=== PATIENT | female | born 1965 | race Caucasian/White ===

== ENCOUNTER 2017-06-26 13:02 | Emergency (ER) | payer OTHER ==
[~2017-06-26] VITALS: Ht 154.9 cm; Wt 71.4 kg
[2017-06-26 13:13] VITALS: TEMP 36.6; Ht 154.9 cm; Wt 71.4 kg
--- NOTE | 2017-06-26 13:57 | EMERGENCY ROOM VISIT NOTE ---
History Report prepared by Omar: Carson Rodas Under the Supervision of: Dr. Bienvenido Kendall M.D. First contact with patient: 13:31 Chief Complaint: MENTAL HEALTH EVALUATION Stated Complaint: CRISIS SITUATION History of Present Illness The patient is a 52 year old female who presents to the Emergency Room for a mental health evaluation due to worsening anxiety for the past few days. She additionally states that she has a headache and some eye pain. The patient states that she is stressed from things at her own business. The patient states that she has been having a lot of spasms recently. She states that she has been trying to talk to her doctors. The patient states that she was put on Klonopin, nortriptyline and then Valium which she states has helped her spasms. Additionally she states that she was put on Lyrica and Cymbalta, though they made her depressed so she weaned herself off of it. She states that she has never been hospitalized for anxiety in the past. The patient states that she has seen a psychiatrist yesterday, and she states that she has not slept recently, and she has not been eating very well and has lost 50 pounds. The patient states that about a week ago she took a handful of pills to just go to sleep, though she spit them out since she could not do it. She denies any homicidal ideation. The patient states that she does not drink alcohol, though she does smoke marijuana for her pain from her rheumatoid arthritis. The patient states that she has had torticollis for the past 2 years. Source of History: patient Onset: past few days Position: other (global) Quality: other (anxiety) Timing: worsening Associated Symptoms: + headache Note: Associated symptoms: eye pain Review of Systems See HPI for pertinent positives & negatives. A total of 10 systems reviewed and were otherwise negative. Past Medical & Surgical Medical Problems: (1) Anxiety (2) Torticollis Old medical records were reviewed. Nurse's notes were reviewed and I agree with. Social History Smoking Status: Current Every Day Smoker Marital Status: Housing Status: lives with family Occupation Status: employed Current/Historical Medications Scheduled Acetaminophen (Tylenol), 1,000 MG PO DAILY Calcium Carbonate-Cholecalcife (Caltrate 600+D), 1 TAB PO BID Cholecalciferol (Vitamin D3), 2,000 UNITS PO BID Clonazepam (Klonopin), 0.5-1 MG PO DAILY Dexlansoprazole (Dexilant), 60 MG PO DAILY Estrogens, Conjugated (Premarin), 0.625 MG PO DAILY Ferrous Sulfate (Kp Ferrous Sulfate), 1 TAB PO DAILY Levothyroxine Sodium (Synthroid), 112 MCG PO DAILY [Potassium Gluconate], 99 MG PO DAILY Allergies Coded Allergies: Doxycycline (Unverified Allergy, Severe, ANAPHYLAXIS, 06/26/17) Sulfamethoxazole w/Trimethoprim (Unverified Adverse Reaction, Unknown, YEAST INFECTIONS, 06/26/17) Uncoded Allergies: LAYTEX (Allergy, Intermediate, RASH, 06/26/17) Physical Exam Vital Signs Date Time Temp Pulse Resp B/P (MAP) Pulse Ox O2 Delivery O2 Flow Rate FiO2 06/26/17 16:50 68 18 142/72 96 Room Air 06/26/17 14:50 72 20 137/76 96 Room Air 06/26/17 13:13 36.6 88 18 132/77 96 Room Air Physical Exam General: Anxious appearing middle aged female. Intermittently teary eyes. Some tangential thinking. No acute distress. HEENT: Normal cephalic atraumatic. Pupils are equal round and reactive to light. Extraocular movements are intact. Oropharynx is pink with moist mucous membranes. No swelling of the mouth lips or tongue. Neck: Supple with a midline trachea. No meningeal signs or stiffness, no JVD or bruits. No Stridor. Chest: Clear to auscultation bilaterally. No wheezes or rhonchi. No increased work of breathing. Heart: regular rate and rhythm. Abdomen: Soft nontender, nondistended without rebound guarding or rigidity. Extremities: No cyanosis clubbing or edema. No calf tenderness or assymetry Spine/Back. Non tender to palpation. No CVA tenderness Skin: Good turgor without rashes. Neurologic exam: Cranial nerves two through 12 are intact. Motor and sensation are intact and symmetrical throughout. Psych: Teary eyed. Depressed. Has had fleeting thoughts of hurting herself. Medical Decision & Procedures Laboratory Results 06/26/17 13:55 Red Blood Count 4.80, Mean Corpuscular Volume 82.9, Mean Corpuscular Hemoglobin 28.3, Mean Corpuscular Hemoglobin Concent 34.2, Mean Platelet Volume 9.9, Neutrophils (%) (Auto) 55.6, Lymphocytes (%) (Auto) 34.3, Monocytes (%) (Auto) 8.7, Eosinophils (%) (Auto) 0.9, Basophils (%) (Auto) 0.4, Neutrophils # (Auto) 4.12, Lymphocytes # (Auto) 2.55, Monocytes # (Auto) 0.65, Eosinophils # (Auto) 0.07, Basophils # (Auto) 0.03 06/26/17 13:55 Test 06/26/17 00:00 06/26/17 13:55 06/26/17 17:30 Urine Color DK YELLOW Urine Appearance CLOUDY (CLEAR) Urine pH 6.0 (4.5-7.5) Urine Specific [place] 1.023 (1.000-1.030) Urine Protein TRACE (NEG) Urine Glucose (UA) NEG (NEG) Urine Ketones TRACE (NEG) Urine Occult Blood NEG (NEG) Urine Nitrite NEG (NEG) Urine Bilirubin NEG (NEG) Urine Urobilinogen NEG (NEG) Urine Leukocyte Esterase NEG (NEG) Urine WBC (Auto) 1-5 /hpf (0-5) Urine RBC (Auto) 5-10 /hpf (0-4) Urine Hyaline Casts (Auto) 1-5 /lpf (0-5) Urine Epithelial Cells (Auto) >30 /lpf (0-5) Urine Bacteria (Auto) NEG (NEG) Urine Crystals CALCIUM OXALATE (NONE White Blood Count 7.43 K/uL (4.8-10.8) Red Blood Count 4.80 M/uL (4.2-5.4) Hemoglobin 13.6 g/dL (12.0-16.0) Hematocrit 39.8 % (37-47) Mean Corpuscular Volume 82.9 fL (80-100) Mean Corpuscular Hemoglobin 28.3 pg (25-34) Mean Corpuscular Hemoglobin Concent 34.2 g/dl (32-36) Platelet Count 445 K/uL (130-400) Mean Platelet Volume 9.9 fL (7.4-10.4) Neutrophils (%) (Auto) 55.6 % Lymphocytes (%) (Auto) 34.3 % Monocytes (%) (Auto) 8.7 % Eosinophils (%) (Auto) 0.9 % Basophils (%) (Auto) 0.4 % Neutrophils # (Auto) 4.12 K/uL (1.4-6.5) Lymphocytes # (Auto) 2.55 K/uL (1.2-3.4) Monocytes # (Auto) 0.65 K/uL (0.11-0.59) Eosinophils # (Auto) 0.07 K/uL (0-0.5) Basophils # (Auto) 0.03 K/uL (0-0.2) RDW Standard Deviation 44.9 fL (36.4-46.3) RDW Coefficient of Variation 14.7 % (11.5-14.5) Immature Granulocyte % (Auto) 0.1 % Immature Granulocyte # (Auto) 0.01 K/uL (0.00-0.02) Anion Gap 8.0 mmol/L (3-11) Est Creatinine Clear Calc Drug Dose 65.3 ml/min Estimated GFR () 84.1 Estimated GFR (Non- 72.5 BUN/Creatinine Ratio 9.9 (10-20) Calcium Level 9.3 mg/dl (8.5-10.1) Total Bilirubin 0.3 mg/dl (0.2-1) Direct Bilirubin < 0.1 mg/dl (0-0.2) Aspartate Amino Transf (AST/SGOT) 19 U/L (15-37) Alanine Aminotransferase (ALT/SGPT) 33 U/L (12-78) Alkaline Phosphatase 96 U/L (45-117) Total Protein 8.1 gm/dl (6.4-8.2) Albumin 3.7 gm/dl (3.4-5.0) Lipase 118 U/L (73-393) Thyroid Stimulating Hormone (TSH) 1.090 uIu/ml (0.300-4.500) Salicylates Level 3.5 mg/dl (2.8-20) Acetaminophen Level < 2 ug/ml (10-30) Ethyl Alcohol mg/dL < 3.0 mg/dl (0-3) Laboratory studies as stated above per my review. Medications Administered Medications (Trade) Dose Ordered Sig/Angie Route Start Time Stop Time Status Last Admin Dose Admin Diazepam (Valium Tab) 5 mg NOW STAT PO 06/26/17 16:04 06/26/17 16:06 DC 06/26/17 16:04 5 MG ECG Indication: other (anxiety) Rate (beats per minute): 91 Rhythm: normal sinus Findings: other (LVH, normal interval) ED Course 1331: Past medical records reviewed. The patient was evaluated in room A7, and a complete history and physical examination were performed. 1601: I reevaluated the patient, and she had a muscle spasm. She states that she wants Valium 1604: Valium Tab 5mg PO 1736: Medical Decision Differentials include, but are not limited to; anxiety, depression, toxicologic process, electrolyte or metabolic abnormality. This patient comes in as described above. She is trying to get her care moved up here. She has no local doctor. She's been very anxious and had stress and ongoing torticolis that has been I don't think so causing her problems. Multiple blood testing was obtained. She was medically cleared to be seen by psychiatry. She's no had significant electrolyte or metabolic abnormalities or nothing to suggest infection or toxicologic process. Maura, our case management saw her and the patient started having torticollis spell and asked for Valium. Her daughters driving. She was given Valium 5 mg by mouth. This did seem to help. The patient is feeling much better. At this point, she does not meet criteria for admission she may ultimately benefit from admission at some point to her mental health [facility] however there are no beds she does not want to go anywhere else. She does feel comfortable going home. She's can call and check in with Maura tomorrow. Family is comfortable this is well she is supposed to be on Zoloft and Klonopin which she should use. The Klonopin could also help with her spasms as well as her anxiety. We have made an appointment for her to see a primary care physician. She was encouraged to return to ER if: Worsening of symptoms, thoughts of hurting himself or others, any new problems concerns. She was happy with plan and discharged to home. Medication Reconcilliation Current Medication List: was personally reviewed by me Blood Pressure Screening Patient's blood pressure: Normal blood pressure Impression Primary Impression: Anxiety Additional Impression: Torticollis Scribe Attestation The scribe's documentation has been prepared under my direction and personally reviewed by me in its entirety. I confirm that the note above accurately reflects all work, treatment, procedures, and medical decision making performed by me. Departure Information Dispostion Home / Self-Care Referrals No Doctor, Assigned (PCP) Forms HOME CARE DOCUMENTATION FORM, IMPORTANT VISIT INFORMATION Patient Instructions My [facility] Additional Instructions Rest. Drink plenty of fluids. Use your Klonopin and Zoloft as directed. Klonopin may make you drowsy and do not take before drinking, driving, working Return if: Worsening symptoms, thoughts of hurting herself or others, any new problems or concerns Problem Qualifiers
[2017-06-26 14:13] LABS: BASO % 0.4 %; BASO ABS # 0.03 K/uL (0-0.2); COMPLETE YES; EOS % 0.9 %; HEMATOCRIT 39.8 % (37-47); IG% 0.1 %; LYMPH % 34.3 %; LYMPH ABS # 2.55 K/uL (1.2-3.4); MEAN CELL VOLUME 82.9 fL (80-100); MEAN CORPUSCULAR HEMOGLOBIN 28.3 pg (25-34); MEAN CORPUSCULAR HGB CONC 34.2 g/dl (32-36); MEAN PLATELET VOLUME 9.9 fL (7.4-10.4); MONO % 8.7 %; NEUT % 55.6 %; PLATELET COUNT 445 K/uL (130-400); WHITE BLOOD COUNT 7.43 K/uL (4.8-10.8)
[2017-06-26] MEDS ORDERED: LEVO112T2 PO (14:19)
[2017-06-26] MEDS ORDERED: PRM625 PO (14:20)
[2017-06-26] MEDS ORDERED: DEXL60CA4 PO (14:21)
[2017-06-26] MEDS ORDERED: ACET-1256 PO (14:22)
[2017-06-26] MEDS ORDERED: CLON1TAB3 PO (14:23)
[2017-06-26] MEDS ORDERED: CALC-354 PO (14:33)
[2017-06-26] MEDS ORDERED: POTAPOW29 PO (14:33)
[2017-06-26] MEDS ORDERED: CHOL1000 PO (14:33)
[2017-06-26 14:40] LABS: BUN/CREATININE RATIO 9.9 (10-20); CALCIUM 9.3 mg/dl (8.5-10.1); CREATININE 0.91 mg/dl (0.60-1.20); POTASSIUM 3.7 mmol/L (3.5-5.1)
[2017-06-26 14:44] LABS: ALKALINE PHOSPHATASE 96 U/L (45-117); ALT/SGPT 33 U/L (12-78); AST/SGOT 19 U/L (15-37)
[2017-06-26] MEDS ORDERED: FERR1TAB13 PO (14:47)
[2017-06-26 14:48] LABS: ACETAMINOPHEN < 2 ug/ml (10-30)
[2017-06-26 15:26] LABS: BENZODIAZEPINE, URINE POS (NEG); COCAINE,URINE NEG (NEG); PHENCYCLIDINE, URINE NEG (NEG)
[2017-06-26 15:41] LABS: URINE APPEARANCE CLOUDY (CLEAR); URINE BILIRUBIN NEG (NEG); URINE COLOR DK YELLOW; URINE EPITHELIAL CELL AUTO >30 /lpf (0-5); URINE NITRITE NEG (NEG); URINE SPECIFIC GRAVITY 1.023 (1.000-1.030); UROBILINOGEN NEG (NEG); ZZUR CULT IF INDIC CLEAN CATCH NO
[2017-06-26 15:47] LABS: MANUAL MICROSCOPIC REQUIRED? NO; REVIEW REQ? YES
[2017-06-26] MEDS ORDERED: DIAZEPAM 5MG TAB PO STA (16:04)
[2017-06-26 16:50] VITALS: BP 142/72; PULSE 68; O2SAT 96
[2017-06-26 18:13] LABS: BENZODIAZEPINE, URINE POS (NEG); COCAINE,URINE NEG (NEG); PHENCYCLIDINE, URINE NEG (NEG)
[2017-06-29 14:27] LABS: HYDROXYETHYLFLURAZEPAM CONF NEGATIVE NG/ML (CUTOFF=50); HYDROXYMIDAZOLAM NEGATIVE NG/ML (CUTOFF=50); HYDROXYTRIAZOLAM CONF NEGATIVE NG/ML (CUTOFF=50); TEMAZEPAM CONF NEGATIVE NG/ML (CUTOFF=50)
== END 2017-06-26 18:08 | disposition home or self-care (01) ==
LOC: C.EDB 13:03 → C.EDA 18:08
DX: Z00.8 Encounter for other general examination (principal); F41.9 Anxiety disorder, unspecified; M43.6 Torticollis

== ENCOUNTER → 2017-08-13 | Outpatient (CLI) | payer OTHER ==
[~2017-08-13] MED LIST: ACET-1256 PO; CALC-354 PO; CHOL1000 PO; CLON1TAB3 PO; DEXL60CA4 PO; FERR1TAB13 PO; LEVO112T2 PO; POTAPOW29 PO; PRM625 PO
--- NOTE | 2017-08-13 17:32 | DIAGNOSTIC IMAGING REPORT ---
LEFT HAND MIN 3 VIEWS ROUTINE CLINICAL HISTORY: 52 years-old Female presenting with arthritis, no trauma. TECHNIQUE: Frontal, oblique, and lateral views of the left hand were obtained. COMPARISON: Correlation made to plain radiographs of the right hand performed the same day. FINDINGS: Degenerative changes of the distal interphalangeal joint of the second, third, and fifth fingers. Less severe degenerative change at the interphalangeal joint of the first finger and proximal interphalangeal joint of the fifth finger, best appreciated on lateral view. Joint space loss and osteophytosis of apparent. No marginal erosions or osteopenia. However, subchondral erosions may be present. Radiocarpal, intercarpal, and carpometacarpal articulations normal with no acute fracture or malalignment. No soft tissue abnormality. IMPRESSION: Findings most consistent with osteoarthritis affecting the distal interphalangeal joints more than the proximal interphalangeal joints. The presence of possible subchondral erosions suggests erosive osteoarthritis. Electronically signed by: Nirmal Blevins M.D. 08/13/2017 5:31 PM Dictated Date/Time: 08/13/2017 5:26 PM
--- NOTE | 2017-08-13 17:36 | DIAGNOSTIC IMAGING REPORT ---
RIGHT HAND MIN 3 VIEWS ROUTINE CLINICAL HISTORY: 52 years-old Female presenting with arthralgia multiple joints, no trauma. TECHNIQUE: Frontal, oblique, and lateral views of the right hand were obtained. COMPARISON: Correlation made to plain radiographs of the left hand. FINDINGS: Degenerative changes with joint space loss and osteophytosis noted at the distal interphalangeal joints of the second through fifth fingers. Subchondral erosions may be present. No marginal erosions apparent. Relative sparing of the interphalangeal joint of the first finger. No significant degenerative change of the proximal interphalangeal joints. Radiocarpal, intercarpal, and carpometacarpal articulations preserved. Mild degenerative change suggested at the first metacarpophalangeal joint. No acute fracture or malalignment. No osteopenia. No soft tissue abnormality. IMPRESSION: Findings most consistent with osteoarthritis involving the distal interphalangeal joints. The presence of subchondral erosions suggest erosive osteoarthritis. Electronically signed by: Nirmal Blevins M.D. 08/13/2017 5:35 PM Dictated Date/Time: 08/13/2017 5:31 PM
--- NOTE | 2017-08-13 17:38 | DIAGNOSTIC IMAGING REPORT ---
THORACIC SPINE 3 VIEWS ROUTINE CLINICAL HISTORY: 52 years-old Female presenting with arthralgia multiple joints, scoliosis. TECHNIQUE: 3 views of the thoracic spine were obtained. COMPARISON: None. FINDINGS: S-shaped scoliotic curvature of the thoracolumbar spine. Slightly exaggerated kyphosis of the thoracic spine. Allowing for scoliosis, no gross evidence of vertebral body height loss. Intervertebral disc spaces maintained. Multilevel degenerative changes noted most severe in the upper lumbar spine at L2-3. No evidence of syndesmophytosis. Visualized portion of the thorax demonstrates a mildly prominent cardiac silhouette with clear lungs and pleural spaces. IMPRESSION: 1. S-shaped scoliotic curvature of the thoracolumbar spine. 2. Mild multilevel degenerative changes. Electronically signed by: Nirmal Blevins M.D. 08/13/2017 5:37 PM Dictated Date/Time: 08/13/2017 5:35 PM
[2017-08-13 17:39] LABS: URINE APPEARANCE CLEAR (CLEAR); URINE BILIRUBIN NEG (NEG); URINE COLOR YELLOW; URINE EPITHELIAL CELL AUTO 20-30 /lpf (0-5); URINE NITRITE NEG (NEG); URINE PH 6.5 (4.5-7.5); URINE SPECIFIC GRAVITY 1.012 (1.000-1.030); UROBILINOGEN NEG (NEG); ZZUR CULT IF INDIC CLEAN CATCH NO
--- NOTE | 2017-08-13 17:40 | DIAGNOSTIC IMAGING REPORT ---
C-SPINE ROUTINE 4 OR 5 VIEWS CLINICAL HISTORY: 52 years-old Female presenting with arthralgia multiple joints, no trauma. TECHNIQUE: Lateral, bilateral oblique, frontal, and open-mouth odontoid views of the cervical spine were obtained. COMPARISON: None. FINDINGS: Normal cervical lordosis. Vertebral bodies maintain normal height and alignment. Mild intervertebral disc height loss at C5-6, where there is a focal disc osteophyte complex. Mild osseous neural foraminal narrowing may result at this level, left greater than right. No radiographic evidence of syndesmophyte ptosis. Normal predental interval with degenerative changes of the atlantoaxial articulation noted. No prevertebral soft tissue swelling. Numerous surgical clips project over the base of the neck. IMPRESSION: 1. Focal degenerative change at C5-6 with left greater than right osseous neural foraminal narrowing. 2. Degenerative changes at the atlantoaxial articulation. Electronically signed by: Nirmal Blevins M.D. 08/13/2017 5:38 PM Dictated Date/Time: 08/13/2017 5:37 PM
[2017-08-13 17:41] LABS: BLOOD UREA NITROGEN 12 mg/dl (7-18); BUN/CREATININE RATIO 15.6 (10-20); CALCIUM 8.8 mg/dl (8.5-10.1); CARBON DIOXIDE 29 mmol/L (21-32); CHLORIDE 104 mmol/L (98-107); CREATININE 0.76 mg/dl (0.60-1.20); GLUCOSE 90 mg/dl (70-99); MAGNESIUM 2.5 mg/dl (1.8-2.4); POTASSIUM 3.7 mmol/L (3.5-5.1); SODIUM 139 mmol/L (136-145)
[2017-08-13 17:44] LABS: MANUAL MICROSCOPIC REQUIRED? NO; REVIEW REQ? NO
[2017-08-13 17:46] LABS: PHOSPHORUS 4.4 mg/dl (2.5-4.9); RHEUMATOID FACTOR < 10.0 U/mL (0-15); TOTAL IRON BINDING CAPACITY 438 mcg/dl (250-450)
[2017-08-13 17:51] LABS: URINE PROTIEN/CREAT RATIO 0.1 (0-0.2); URINE TOTAL PROTEIN 8.3 mg/dl (0-11.9)
[2017-08-20 10:17] LABS: ANTI-CENTROMERE AB <1.0 NEG AI (<1.0 NEG); ANTI-SS-A <1.0 NEG AI (<1.0 NEG); ANTI-SS-B <1.0 NEG AI (<1.0 NEG); DNA ds CRITHIDIA NEGATIVE (NEGATIVE); Sm Antibody <1.0 NEG AI (<1.0 NEG)
== END | disposition home or self-care (01) ==
LOC: C.RAD1850 16:01
PROVIDERS: ATTEND Internal Medicine Rheumatology
DX: M25.50 Pain in unspecified joint (principal); M79.7 Fibromyalgia; M41.9 Scoliosis, unspecified; Z85.528 Personal history of other malignant neoplasm of kidney; M50.322 Other cervical disc degeneration at C5-C6 level; M47.812 Spondylosis without myelopathy or radiculopathy, cervical region; M85.9 Disorder of bone density and structure, unspecified

== ENCOUNTER → 2017-08-17 | Outpatient (CLI) | payer OTHER ==
--- NOTE | 2017-08-17 15:43 | DIAGNOSTIC IMAGING REPORT ---
BONE SCAN WHOLE BODY CLINICAL HISTORY: 52 years-old Female presenting with M25.50 Arthralgia of multiple [id number] [id number] Fibromy. TECHNIQUE: Planar anterior and posterior whole body imaging was performed 3 hours following the intravenous administration of radiotracer. Radiotracer: 25.1 mCi Tc-99m MDP. COMPARISON: Plain radiographs of the bilateral hands, thoracic spine, and C-spine performed on 08/13/2017. FINDINGS: Focal radiotracer uptake in the region of the left antecubital fossa likely from regional lymph node uptake. S-shaped scoliotic curvature of the thoracolumbar spine. Mild focal uptake in the lateral aspect of the bilateral feet in the region of the midfoot possibly at the fifth tarsometatarsal articulation, likely degenerative change. Mild focal uptake also suggested at several distal interphalangeal joints of the hands. Mild focal uptake at a right facet joint in the upper lumbar spine likely degenerative. Otherwise expected distribution of radiotracer with excretion in the urinary bladder. IMPRESSION: 1. Mild focal uptake in the region of the midfoot and distal interphalangeal joints, likely degenerative in etiology. Consideration for bilateral radiographs of the feet as clinically warranted. 2. S-shaped scoliotic curvature of the thoracolumbar spine with mild focal uptake likely related to facet arthropathy in the upper lumbar spine. Electronically signed by: Nirmal Blevins M.D. 08/17/2017 3:42 PM Dictated Date/Time: 08/17/2017 3:38 PM
== END | disposition home or self-care (01) ==
LOC: C.NUCL 12:22
PROVIDERS: ATTEND Internal Medicine Rheumatology
DX: M25.50 Pain in unspecified joint (principal); M79.7 Fibromyalgia; M41.9 Scoliosis, unspecified